=== PATIENT | female | born 2000 | race Two or more races ===

== ENCOUNTER 2025-03-23 11:18 | Emergency (ER) | payer MEDICAID, SELFPAY ==
[2025-03-23 11:38] VITALS: BP 150/87; PULSE 91; RESP 20; TEMP 37.1; O2SAT 98; BMI 52.9
--- NOTE | 2025-03-23 11:49 | XR_ITS ---
Examination: CT brain head without contrast. 2-D sagittal coronal reconstructions Date and time of exam:March 23, 2025 1158 hours INDICATIONS: Headaches with dizziness beginning 2 weeks ago CTDI: vol (mGy):53 DLP: (mGycm):1085 Technique: Multiple CT axial sections of the brain have been obtained, 5 mm slice thickness. Contrast has not been administered. 2-D sagittal, coronal reconstructions have been obtained Low dose protocols were performed. One or more of the following dose reduction techniques were used; automated exposure control, adjustment of the mA and/or KV according to patient size, use of iterative reconstruction technique. Findings: No significant ventricular enlargement. Intra-axial or extra-axial hemorrhage density is not seen. No mass effect or midline shift Basal cisterns are not remarkable. Fourth ventricle is midline. Cranial vault intact. 30 mm soft tissue mass right scalp which may represent a sebaceous cyst Impression: Negative for acute hemorrhage, mass effect or midline shift
--- NOTE | 2025-03-23 11:54 | PD.EDRME ---
Rapid Medical Screening Exam RME Arrival date/time: 03/23/25 11:18 24-year-old female with no known medical history presents to the emergency room with a chief complaint of a headache, dizziness, lightheadedness, and a hemangioma that is causing her discomfort to her scalp. I have greeted and performed a focused initial assessment of this patient. A comprehensive ED assessment and evaluation of the patient, analysis of all test results, and completion of the medical decision making process will be conducted by additional ED providers. Chief Complaint: Headache Time Seen by Provider: 03/23/25 11:20 Vital signs: Vital Signs Temperature 98.8 F 03/23/25 11:38 Pulse Rate 91 03/23/25 11:38 Respiratory Rate 20 03/23/25 11:38 Blood Pressure 150/87 H 03/23/25 11:38 Pulse Oximetry (%) 98 03/23/25 11:38 Oxygen Delivery Method Room Air 03/23/25 11:38 Vital signs reviewed by provider: Yes
[2025-03-23 12:32] LABS: Basophils % (Auto) 0 % (0-2.5); Eosinophils # (Auto) 0.2 Thou/mm3 (0.0-0.5); Eosinophils % (Auto) 2 % (0-10); Hematocrit 37.6 % (36.0-46.0); Hemoglobin 11.8 g/dL (12.0-16.0); Immature Granulocytes % (Auto) 0 % (0-0); Immature Granulocytes Auto 0.02 Thou/mm3 (0.00-0.00); Lymphocytes # (Auto) 2.1 Thou/mm3 (1.0-4.8); Lymphocytes % (Auto) 25 % (10-50); Mean Corpuscular HGB Conc 31.4 g/dl (31.0-37.0); Mean Corpuscular Hemoglobin 25.4 pg (25.0-35.0); Mean Corpuscular Volume 81 fL (80-100); Monocytes # (Auto) 0.4 Thou/mm3 (0.0-0.8); Monocytes % (Auto) 5 % (0-12); Neutrophils # (Auto) 5.6 Thou/mm3 (1.8-7.7); Neutrophils % (Auto) 68 % (37-80); Nucleated Red Blood Cell % 0 /100 WBC (0); Platelet Count 229 Thou/mm3 (140-440); RDW Standard Deviation 41.4 fL (36.4-46.3); Red Blood Count 4.64 Miln/mm3 (4.00-5.20); White Blood Count 8.3 Thou/mm3 (3.6-11.0)
[2025-03-23 13:03] LABS: Alanine Aminotransferase 25 U/L (10-49); Albumin, Serum 4.4 gm/dL (3.5-5.0); Albumin/Globulin Ratio 1.5 (1.2-2.2); Alkaline Phosphatase 65 U/L (46-116); Anion Gap 5 (7-16); Aspartate Amino Transferase 22 U/L (0-34); BUN/Creatinine Ratio 17 Ratio (12-20); Bilirubin,Total 0.3 mg/dL (0.3-1.2); Blood Urea Nitrogen 10 mg/dL (9-23); Calcium 9.3 mg/dL (8.3-10.6); Calcium (Corrected) 9.3 mg/dL (8.5-10.1); Carbon Dioxide 27.9 mMol/L (20.0-31.0); Chloride 104 mMol/L (98-107); Creatinine (Component) 0.6 mg/dL (0.6-1.3); Estimated Creatinine Clearance 206.1 mL/min (>60); Globulin 2.9 gm/dL (2.3-3.5); Glucose 94 mg/dL (74-106); Magnesium 1.7 mg/dL (1.6-2.6); Osmolality,Calculated 272 (275-295); Sodium 137 mMol/L (136-145); Total Protein 7.3 gm/dL (5.7-8.2); eGFR > 60 See Note
[2025-03-23 13:07] LABS: Partial Thromboplastin Time 28.2 Seconds (22.0-36.0); Prothrombin Time 10.7 Seconds (9.0-12.2)
--- NOTE | 2025-03-23 13:22 | PD.EDHA ---
ED Headache RME/HPI General Chief Complaint: Headache Stated Complaint: MIGRAINE WITH PAIN/CYCST TO RIGHT SIDE OF HEAD Time Seen by Provider: 03/23/25 11:20 Source: patient Arrival date/time: 03/23/25 11:18 24-year-old female with no known medical history presents to the emergency room with a chief complaint of a headache, dizziness, lightheadedness, and a sebaceous cyst that is causing her discomfort to her scalp. Mode of arrival: ambulatory Limitations: no limitations RME / HPI RME / HPI Narrative: 03/23/25 11:18 24-year-old female with no known medical history presents to the emergency room with a chief complaint of a headache, dizziness, lightheadedness, and a sebaceous cyst that is causing her discomfort to her scalp. I have greeted and performed a focused initial assessment of this patient. A comprehensive ED assessment and evaluation of the patient, analysis of all test results, and completion of the medical decision making process will be conducted by additional ED providers. Related Data Previous Rx's ?Medication ?Instructions ?Recorded acetaminophen-caffeine 500 mg-65 1 tab PO Q8H PRN pain #30 tabs 03/23/25 mg tablet (Excedrin Tension Headache) Allergies Allergy/AdvReac Type Severity Reaction Status Date / Time No Known Allergies Allergy Verified 03/23/25 11:20 Review of Systems Review of Systems Systems Reviewed: All systems reviewed, normal except as documented Constitutional Constitutional: Reports system reviewed and no additional complaints, except as documented, Denies fatigue, Denies fever(s), Reports headache(s) and Reports weakness Eyes Eyes: Reports system reviewed and no additional complaints, except as documented, Denies blurry vision and Denies change in vision ENT Ears, Nose, Mouth, and Throat: Reports system reviewed and no additional complaints, except as documented, Denies otalgia, Reports headache(s), Denies nasal congestion, Denies throat swelling and Denies vertigo Cardiovascular Cardiovascular: Reports system reviewed and no additional complaints, except as documented, Denies chest pain, Denies dyspnea and Denies dyspnea on exertion Respiratory Respiratory: Reports system reviewed and no additional complaints, except as documented, Denies chest congestion, Denies cough, Denies dyspnea, Denies dyspnea on exertion and Denies wheezing Gastrointestinal Gastrointestinal: Reports system reviewed and no additional complaints, except as documented, Denies abdominal pain, Denies cramping, Denies nausea and Denies vomiting Genitourinary Genitourinary: Reports system reviewed and no additional complaints, except as documented Musculoskeletal Musculoskeletal: Reports system reviewed and no additional complaints, except as documented and Denies back pain Integumentary/Breasts Skin/Breast: Reports system reviewed and no additional complaints, except as documented and Denies wounds Neurologic Neurologic: Reports system reviewed and no additional complaints, except as documented, Denies confusion, Reports headache(s), Denies lack of coordination, Denies vertigo and Reports weakness Psychiatric Psychiatric: Reports system reviewed and no additional complaints, except as documented, Denies anxiety, Denies confusion, Denies depression, Denies paranoia, Denies suicidal ideation and Denies tactile hallucinations Endocrine Endocrine: Reports system reviewed and no additional complaints, except as documented and Denies fatigue Hematologic/Lymphatic Hematologic/Lymphatic: Reports system reviewed and no additional complaints, except as documented and Denies lymphadenopathy Allergic/Immunologic Allergic/Immunologic: Reports system reviewed and no additional complaints, except as documented, Denies throat swelling, Denies urticaria and Denies wheezing Past Medical History Social History SMOKING STATUS: Former smoker ED Exam General Limitations: Present no limitations General appearance: Present alert and in no apparent distress Head Head exam: Present atraumatic, normocephalic and normal inspection Expanded Head Exam Head exam physical: Present other Head image:  1. Sebaceous cyst coming out of her scalp Eye Eye exam: Present normal appearance, PERRL and EOMI ENT ENT exam: Present normal exam, normal oropharynx and mucous membranes moist Neck Neck exam: Present normal inspection, full ROM and trachea midline Chest Chest inspection: Present normal inspection and symmetric chest wall rise Respiratory Respiratory exam: Present normal lung sounds bilaterally Cardiovascular Cardiovascular exam: Present regular rate, normal rhythm and normal heart sounds Abdominal Exam Abdominal exam: Present soft and normal bowel sounds Extremities Exam Extremities exam: Present normal inspection and full ROM Back Exam Back exam: Present normal inspection and full ROM Neurological Exam Neurological exam: Present alert, oriented X3, CN II-XII intact, normal gait and reflexes normal Expanded Neurological Exam Patient oriented to: Present person, place and time Speech: Present fluid speech Cranial nerves: Normal: EOM function (II, III, IV, ), facial sensation (V) and facial palsy (VII) Cerebellar function: Present normal gait Motor strength - LUE: 5/5 Motor strength - RUE: 5/5 Motor strength - LLE: 5/5 Motor strength - RLE: 5/5 Coma scale eye opening: spontaneous Coma scale motor response: obeys commands Coma scale verbal response: oriented Coma scale total: 15 Psychiatric Psychiatric exam: Present normal affect and normal mood Skin Skin exam: Present warm, dry, intact and normal color Course Quality Measures none Orders Category Date Time Status CT head/brain wo con Stat Exams 03/23/25 11:49 Completed CBC Stat Lab 03/23/25 12:20 Completed Comprehensive Metabolic Panel Stat Lab 03/23/25 12:20 Completed Magnesium Stat Lab 03/23/25 12:20 Completed Partial Thromboplastin Time Stat Lab 03/23/25 12:20 Completed Prothrombin Time with INR Stat Lab 03/23/25 12:20 Completed Ketorolac Inj [Toradol Inj] Med 03/23/25 13:21 Discontinued 30 mg IM X1 ONE SUMAtriptan INJ [Imitrex Inj] Med 03/23/25 13:21 Discontinued 6 mg SC X1 ONE Vital Signs Vital signs: Vital Signs Temperature 98.8 F 03/23/25 11:38 Pulse Rate 91 03/23/25 11:38 Respiratory Rate 20 03/23/25 11:38 Blood Pressure 150/87 H 03/23/25 11:38 Pulse Oximetry (%) 98 03/23/25 11:38 Oxygen Delivery Method Room Air 03/23/25 11:38 Headache MDM Narrative MDM Narrative:: 24-year-old female with no known medical history presents to the emergency room with a chief complaint of a headache, dizziness, lightheadedness, and a sebaceous cyst that is causing her discomfort to her scalp. Patient is hemodynamically stable and in no apparent distress. Neurological exam is within normal limits pupils are PERRLA EOMs are intact patient is a GCS of 15 she is AAO x 3. Patient has a normal steady gait and states she is having a headache. Patient has what she believes is sebaceous cyst to the right side of her scalp and states that it is causing her pain. A CT of the head and brain was completed and did find a 30 mm soft tissue mass to the right scalp that may represent a sebaceous cyst. I spoke to the patient told her about the finding and that she will need to follow-up with her primary care provider for further management. CT was negative for any acute findings. CBC CMP were within normal limits. Medication was given to the patient for headache with significant improvement. Patient was discharged and educated to follow-up with primary care provider in the next 24 to 48 hours and return to the emergency room for any evidence of worsening signs or symptoms Patient data External records reviewed:: [facility] previous records Clinical information provided by:: patient Social determinants that could affect healthcare access:: none Patient has the following chronic illnesses:: No chronic illness How is presenting disease/condition affected by chronic disease/condition?: no chronic disease Evaluation data The following diagnostics were reviewed and interpreted by me:: lab results and radiology exam(s) Lab and/or radiology exams considered but not ordered:: Labs and radiology exams considered in order Interpretation Summary: Findings: No significant ventricular enlargement. Intra-axial or extra-axial hemorrhage density is not seen. No mass effect or midline shift Basal cisterns are not remarkable. Fourth ventricle is midline. Cranial vault intact. 30 mm soft tissue mass right scalp which may represent a sebaceous cyst Impression: Negative for acute hemorrhage, mass effect or midline shift Medications / Prescriptions Medications or Prescriptions considered but not ordered:: Medication given Medication administrations:: Medication Administration History Discontinued Medications Ketorolac Tromethamine (Ketorolac Inj 60 Mg/2 Ml Vial) 30 mg IM X1 ONE Stop: 03/23/25 13:22 Last Admin: 03/23/25 13:40 Dose: 30 mg Documented By: OA Sumatriptan Succinate (Sumatriptan Inj 6 Mg/0.5 Ml Vial) 6 mg SC X1 ONE Stop: 03/23/25 13:22 Last Admin: 03/23/25 13:41 Dose: 6 mg Documented By: OA Medication given Consultations Consultation(s) initiated? (list below): No Diagnosis Differential diagnosis headache: migraine, tension headache, subarachnoid hemorrhage and headache Most likely diagnosis given after review of the tests above:: Headache Admission Indicated Admission indicated?: not indicated Admission Request Was there a request for admission?: No Disposition Plan Disposition Plan: Discharge Discharge Attestation Discharge Attestation: The patient and all family members were given an opportunity to ask questions and understood the discharge instructions. Discharge instructions specifically effects, indications for sooner follow up or return to the emergency department, and the expected course of current diagnosis. Patient condition: Stable Discharge Plan Plan Patient Disposition: HOME (Self Care) Discharge Disposition comment: Stable Prescriptions/Referrals Prescriptions/Med Rec: New Excedrin Tension Headache 500-65 mg tablet 1 tab PO Q8H PRN (Reason: pain) Qty: 30 0RF Referrals: No Primary/Family,Physician [Primary Care Provider] - In 1 week Problem List Clinical Impression: Headache Patient/Caregiver Discharge Instructions Education Materials: Self-Care for Headaches Additional Instructions: Please follow-up with your primary care provider in the next 24 to 48 hours. Medication was sent to your pharmacy to help you with your headaches please pick them up and take them as indicated Your primary care provider can send a referral to remove this sebaceous cyst in your scalp. For any evidence of worsening signs or symptoms return to the emergency room immediately Print Language: Algerian Stand Alone Forms: Kimmy Award Info., Work/School Release, Patient Portal Info Letter PA/GENE Supervising Physician RINA/GENE Supervising Physician: Dr. Dykes
[2025-03-23] MEDS: KETOROLAC INJ 60 MG/2 ML VIAL 30 MG IM (13:40)
[2025-03-23] MEDS: SUMAtriptan INJ 6 MG/0.5 ML VIAL SC (13:41)
== END 2025-03-23 14:51 | disposition home or self-care (01) ==
PROVIDERS: Nurse Practitioner Family; Emergency Provider Family Medicine
DX: R51.9 Headache, unspecified (principal); R42 Dizziness and giddiness
CPT/HCPCS: 36415; 70450; 80053; 83735; 85025; 85610; 85730; 96372; 99284; J1885; J3030

== ENCOUNTER 2025-04-04 18:21 | Emergency (ER) | payer MEDICAID, SELFPAY ==
[2025-04-04 18:22] VITALS: BMI 61.5
[2025-04-04 19:16] VITALS: BP 143/90; PULSE 100; RESP 18; TEMP 37.1; O2SAT 99
--- NOTE | 2025-04-04 19:27 | XR_ITS ---
Examination: CT brain head without contrast. 2-D sagittal coronal reconstructions Date and time of exam:April 04, 2025 195 hours Comparison March 23, 2025 INDICATIONS: Onset headache today CTDI: vol (mGy):5.53 DLP: (mGycm):1127 Technique: Multiple CT axial sections of the brain have been obtained, 5 mm slice thickness. Contrast has not been administered. 2-D sagittal, coronal reconstructions have been obtained Low dose protocols were performed. One or more of the following dose reduction techniques were used; automated exposure control, adjustment of the mA and/or KV according to patient size, use of iterative reconstruction technique. Findings: No significant ventricular enlargement. Large polyp left maxillary antrum Soft tissue scalp mass on the right again depicted which may represent a sebaceous cyst Intra-axial or extra-axial hemorrhage density is not seen. No mass effect or midline shift Basal cisterns are not remarkable. Fourth ventricle is midline. Cranial vault intact. Impression: Negative for acute hemorrhage, mass effect or midline shift
--- NOTE | 2025-04-04 21:17 | PD.EDHA ---
ED Headache RME/HPI General Chief Complaint: Headache Stated Complaint: MIGRAINE FOR 12 DAYS, Time Seen by Provider: 04/04/25 19:27 Arrival date/time: 04/04/25 18:21 This is a case of 24 year old female who came in with headache frontal throbbing in character for 12 days denies any injury nor trauma de nies numbness weakness nor tingling sensation no blurring of vision Mode of arrival: ambulatory Limitations: no limitations Related Data Previous Rx's ?Medication ?Instructions ?Recorded acetaminophen-caffeine 500 mg-65 1 tab PO Q8H PRN pain #30 tabs 03/23/25 mg tablet (Excedrin Tension Headache) [id number]-[id number] 1 cap PO Q8H PRN headache #15 caps 04/04/25 50 mg-300 mg-40 mg capsule (Fioricet) [id number]-mrqvnmoa 1 cap PO Q8H PRN headache #15 caps 04/04/25 50 mg-300 mg-40 mg capsule (Fioricet) ondansetron 4 mg disintegrating 4 mg PO Q8H PRN nausea and 04/04/25 tablet vomiting #20 tabs Allergies Allergy/AdvReac Type Severity Reaction Status Date / Time No Known Allergies Allergy Verified 04/04/25 18:21 Review of Systems Review of Systems Systems Reviewed: All systems reviewed, normal except as documented Constitutional Constitutional: Reports system reviewed and no additional complaints, except as documented, Reports as per HPI, Denies chills, Denies daytime sleepiness, Denies difficulty sleeping, Denies excessive sweating, Denies fatigue, Denies fever(s), Reports headache(s), Denies increased appetite, Denies lethargy, Denies malaise and Denies weight gain Eyes Eyes: Reports system reviewed and no additional complaints, except as documented, Denies blurry vision, Denies change in vision, Denies decreased night vision and Denies diplopia ENT Ears, Nose, Mouth, and Throat: Reports system reviewed and no additional complaints, except as documented, Reports as per HPI, Denies dizziness and Reports headache(s) Cardiovascular Cardiovascular: Reports system reviewed and no additional complaints, except as documented, Reports as per HPI and Denies chest pain Respiratory Respiratory: Reports system reviewed and no additional complaints, except as documented, Denies chest congestion and Denies cough Musculoskeletal Musculoskeletal: Reports system reviewed and no additional complaints, except as documented and Reports as per HPI Neurologic Neurologic: Reports system reviewed and no additional complaints, except as documented, Reports as per HPI, Denies dizziness, Reports headache(s), Denies memory loss, Denies other visual disturbances, Denies paresthesias, Denies radicular pain and Denies seizure-like activity Psychiatric Psychiatric: Denies memory loss Endocrine Endocrine: Denies excessive sweating and Denies fatigue ED Exam General Limitations: Present no limitations General appearance: Present alert, in no apparent distress and obtunded; Absent appears intoxicated, anxious, lethargic or in distress Head Head exam: Present atraumatic, normocephalic and other (noted 2 cm scalp mass on the right parietal area soft non movable no s/sx of infection) Eye Eye exam: Present normal appearance, PERRL, EOMI and other (no pappiledema) ENT ENT exam: Present normal exam, normal oropharynx, mucous membranes moist and TM's normal bilaterally Neck Neck exam: Present normal inspection, full ROM and trachea midline; Absent meningismus Chest Chest inspection: Present normal inspection and symmetric chest wall rise Respiratory Respiratory exam: Present normal lung sounds bilaterally; Absent respiratory distress, wheezes, stridor or accessory muscle use Cardiovascular Cardiovascular exam: Present regular rate, normal rhythm and normal heart sounds; Absent systolic murmur or diastolic murmur Abdominal Exam Abdominal exam: Present soft and normal bowel sounds Extremities Exam Extremities exam: Present normal inspection and full ROM Back Exam Back exam: Present normal inspection and full ROM Neurological Exam Neurological exam: Present alert, oriented X3, CN II-XII intact, normal gait, motor sensory deficit and reflexes normal Expanded Neurological Exam Cranial nerves: Normal: EOM function (II, III, IV, ), facial sensation (V), facial palsy (VII), gag reflex (IX), spinal accessory function (XI) and tongue deviation (XII) Cerebellar function: Normal: finger to nose and heel to hanson Cerebellar function: Present normal gait Motor strength - LUE: 5/5 Motor strength - RUE: 5/5 Motor strength - LLE: 5/5 Motor strength - RLE: 5/5 Upper motor neuron exam: Normal: Babinski sign Psychiatric Psychiatric exam: Present normal affect and normal mood Skin Skin exam: Present warm, dry, intact and normal color Course Quality Measures none Orders Category Date Time Status CT head/brain wo con Stat Exams 04/04/25 19:27 Completed HYDROcodone*/APAP 5/325 [[place] 5/325] Med 04/04/25 21:17 Pending 1 tab PO X1 ONE Ketorolac Inj [Toradol Inj] Med 04/04/25 21:17 Pending 60 mg IM X1 ONE Ondansetron Odt [Zofran Odt] Med 04/04/25 21:17 Discontinued 4 mg PO X1 ONE Vital Signs Vital signs: Vital Signs Temperature 98.8 F 04/04/25 19:16 Pulse Rate 100 04/04/25 19:16 Respiratory Rate 18 04/04/25 19:16 Blood Pressure 143/90 H 04/04/25 19:16 Pulse Oximetry (%) 99 04/04/25 19:16 Oxygen Delivery Method Room Air 04/04/25 19:16 Oxygen saturation 99 % WNL Headache MDM Narrative MDM Narrative:: This is a case of 24 year old female who came in with headache frontal throbbing in character for 12 days denies any injury nor trauma de nies numbness weakness nor tingling sensation no blurring of vision Physicial exam showed normal vital signs patient is not tacycardic not tacypneic blood pressure stable afebrile not hypoxic physicial exam showed noted 2 cm soft scalp mass no bleeding no infection eom intact no appiledema neurological exam normal no focal deficit steady gait ct scan normal not tia no cva based on my physical exam patient symtoms suggestive of headache possible migraine or tension headache treatement given toradol norco and zofran after 15 minutes headache improved patinet verbalized pain markedly decrease neuro exam normal patient prescribed with fiorecet for headache and zofran for nausea vomiting refer to neurologist for headache and general surgeon for possible removal of the scalp mass patient was disharged with comforatble conditionwith stable condition and pain fee. Walking stable Patient verbalized no further complain with the proposed management plan including the need to follow up with his/her primary care physician and and any specialist fif applicable. Discussed patient for any urgent condition or worsening sx He she needed to go to Emergency room of call 911 Patient is acknowledge the responsibility to follow up as instructed and to monitor his/her symptoms For any persistnce of the symtoms for more than 3-5 days retrun precaution advised Discussed the result of thetest and was given printed dsicahrge instruction Patient data External records reviewed:: [facility] previous records Clinical information provided by:: patient Social determinants that could affect healthcare access:: none Patient has the following chronic illnesses:: none How is presenting disease/condition affected by chronic disease/condition?: no chronic disease Evaluation data The following diagnostics were reviewed and interpreted by me:: radiology exam(s) and other (specify) (normal) Lab and/or radiology exams considered but not ordered:: none Interpretation Summary: none Medications / Prescriptions Medications or Prescriptions considered but not ordered:: given Medication administrations:: Medication Administration History Hydrocodone Bitart/Acetaminophen (Hydrocodone/Apap 5/325 Tablet) 1 tab PO X1 ONE Stop: 04/04/25 21:18 Ketorolac Tromethamine (Ketorolac Inj 60 Mg/2 Ml Vial) 60 mg IM X1 ONE Stop: 04/04/25 21:18 Discontinued Medications Ondansetron HCl (Ondansetron Odt 4 Mg Tabrap) 4 mg PO X1 ONE; Protocol Stop: 04/04/25 21:18 given Consultations Consultation(s) initiated? (list below): No Diagnosis Differential diagnosis headache: migraine, tension headache, headache and sinusitis Most likely diagnosis given after review of the tests above:: migraine headache Admission Indicated Admission indicated?: not indicated Explain why admission is indicated or not indicated:: not indicated Admission Request Was there a request for admission?: No Admission Attestation Admission request attestation: not indicated Disposition Plan Disposition Plan: Discharge Discharge Attestation Discharge Attestation: The patient and all family members were given an opportunity to ask questions and understood the discharge instructions. Discharge instructions specifically effects, indications for sooner follow up or return to the emergency department, and the expected course of current diagnosis. Patient condition: Stable Discharge Plan Plan Patient Disposition: HOME (Self Care) Patient condition on transfer: Stable Prescriptions/Referrals Prescriptions/Med Rec: New cxdijkmwao-jysxbtomplhnv-yavf [Fioricet] 50-300-40 mg capsule 1 cap PO Q8H PRN (Reason: headache) Qty: 15 0RF ondansetron 4 mg tablet,disintegrating 4 mg PO Q8H PRN (Reason: nausea and vomiting) Qty: 20 0RF gbpkdejmru-ssyvkfiwzmcew-znmw [Fioricet] 50-300-40 mg capsule 1 cap PO Q8H PRN (Reason: headache) Qty: 15 0RF No Action Excedrin Tension Headache 500-65 mg tablet 1 tab PO Q8H PRN (Reason: pain) Qty: 30 0RF Referrals: Milagros Romero MD [Physician] - 04/06/25 (headache) Jolene Heath MedStudent [Resident] - In 1 week (scalp mass possible excision) Homero Perez MD [Primary Care Provider] - In 1 week Problem List Clinical Impression: Headache Patient/Caregiver Discharge Instructions Education Materials: Self-Care for Headaches Additional Instructions: follow up with PCP in 2 days for reevalaution and to be referred to neurologist for headache and general surgeon for scalp mass keep hydrated Print Language: Slovak Stand Alone Forms: Kimmy Award Info., Patient Portal Info Letter PA/AUTOMATIC COIL MACHINE OPERATOR Supervising Physician PA/AUTOMATIC COIL MACHINE OPERATOR Supervising Physician: dr [email or web address]
[2025-04-04] MEDS: ONDANSETRON ODT 4 MG TABRAP PO (22:39)
[2025-04-04] MEDS: HYDROcodone/APAP 5/325 TABLET 1 TAB PO (22:39)
[2025-04-04] MEDS: KETOROLAC INJ 60 MG/2 ML VIAL IM (22:40)
== END 2025-04-04 22:50 | disposition home or self-care (01) ==
PROVIDERS: Emergency Provider Emergency Medicine; PCP Family Medicine
DX: R51.9 Headache, unspecified (principal)
CPT/HCPCS: 70450; 96372; 99284; J1885; Q0162; A9270